=== PATIENT | female | born 1970 | race Caucasian/White ===

== ENCOUNTER → 2018-06-11 | Emergency (ER) | payer MEDICAID ==
[2018-06-11] MEDS: CEFTRIAXONE 1 GM INJ IM (21:15)
[2018-06-11] MEDS: LIDOCAINE 1% (MPF) 5 ML VIAL INFIL (21:15)
[2018-06-11] MEDS: IBUPROFEN 600 MG TAB PO (21:15)
[2018-06-11] MEDS: ACETAMINOPHEN 325 MG TAB PO (21:15)
== END | disposition home or self-care (01) ==
LOC: FTE 19:01
DX: J03.90 Acute tonsillitis, unspecified (principal)
CPT/HCPCS: 93005; 96372; 99284-25

== ENCOUNTER 2018-09-17 18:54 | Emergency (ER) | payer SELFPAY, MEDICAID ==
[2018-09-17] MEDS: IBUPROFEN 600 MG TAB PO (20:01)
== END 2018-09-17 22:14 | disposition home or self-care (01) ==
LOC: FTE 18:54
DX: S92.901A Unspecified fracture of right foot, initial encounter for closed fracture (principal); W01.198A Fall on same level from slipping, tripping and stumbling with subsequent striking against other object, initial encounter; Y92.9 Unspecified place or not applicable
CPT/HCPCS: 73630; 99283-25